=== PATIENT | female | born 1965 | race Caucasian/White ===

== ENCOUNTER 2017-02-05 17:00 | Inpatient (IN) | payer BC ==
[~2017-02-05] VITALS: Ht 182.9 cm; Wt 134.3 kg
--- NOTE | ~2017-02-05 | HP ---
PATIENT'S NAME: MARIN EVANS [facility] AGE: 51 Y [address] ROOM: [place] [address] LOCATION: [facility] ADMIT DATE: 02/15/2017 History & Physical DISCHARGE DATE: FAMILY PHYSICIAN: Maira Downing ATTENDING PHYSICIAN: JHONY ZAMUDIO DATE OF SERVICE: CHIEF COMPLAINT: Pain, right knee. HISTORY OF PRESENT ILLNESS: The patient is a 51-year-old female, who was admitted to the care of Dr. Jhony Zamudio, orthopedic surgeon, today with a diagnosis of end-stage DJD, right knee. The patient, when I see her, has undergone a successful uncomplicated right total knee arthroplasty, and I have been asked to follow her daily for medical illnesses and pain management. When I see her, she is resting quietly. Does not complain of headache, chest pain, nausea, or vomiting. Says her pain control is adequate. CURRENT MEDICATIONS: 1. Tylenol over the counter. 2. Claritin-D. ALLERGIES TO MEDICATION: No known drug allergies. SOCIAL HISTORY: Does not smoke. FAMILY HISTORY: Negative for problems with bleeding disorder or general anesthesia. IMMUNIZATION STATUS: Unknown. PREVIOUS OPERATIONS: See nurse's notes. REVIEW OF SYSTEMS: HEENT: No recent change in vision, sore throat, or earache. ENDOCRINE: She is not diabetic. There is no thyroid disease. LUNGS: No history of asthma. HEART: No history of hypertension, previous AL. GI: No recent nausea, vomiting, diarrhea, or melena. [facility] AGE: 51 Y [address] ROOM: [place] [address] LOCATION: [facility] ADMIT DATE: 02/15/2017 History & Physical DISCHARGE DATE: FAMILY PHYSICIAN: Maira Downing ATTENDING PHYSICIAN: JHONY ZAMUDIO : No dysuria or frequency. EXTREMITIES: End-stage DJD, right hip. NEUROLOGIC: No history of seizure or stroke. SKIN: No recent rashes. MENTAL STATUS: No recent depression or anxiety. PHYSICAL EXAMINATION: GENERAL: A pleasant dark-haired female, who appears at her stated age. VITAL SIGNS: Noted. HEENT: Benign. NECK: Unremarkable. LUNGS: Clear. HEART: No murmur. ABDOMEN: Benign. BREASTS: Not done. PELVIC AND RECTAL: Not done. EXTREMITIES: Show dressing of right knee. Pulses full throughout. NEUROLOGIC: Grossly intact without lateralizing signs. ASSESSMENT: 1. End-stage degenerative joint disease, right knee. 2. Status post right total knee arthroplasty. 3. Allergic rhinitis. PLAN: Follow daily. MD RITESH CROWELL/ander /[id number] D: 755 T: HISTORY & PHYSICAL
--- NOTE | ~2017-02-05 | OR ---
[facility] 51 Y [address] ROOM: [place] [address] LOCATION: [facility] ADMIT DATE: 02/15/2017 OR/Procedure Report DISCHARGE DATE: FAMILY PHYSICIAN: Maira Downing ATTENDING PHYSICIAN: JHONY ZAMUDIO SURGEON: Jhony Zamudio MD LINESPERSON: Addi Bae CST/DAVIN and Kenney Wild. DATE OF PROCEDURE: 02/15/2017 PRE-OP DIAGNOSIS: Degenerative joint disease right knee. POST-OP DIAGNOSIS: Degenerative joint disease right knee. OPERATION: Right total knee arthroplasty with computer navigation. ANESTHESIA: Spinal anesthesia plus adductor canal block plus periarticular local anesthesia (ropivacaine with epinephrine and Toradol). ESTIMATED BLOOD LOSS: DRAIN: None. SPECIMEN: None. COMPLICATIONS: None. IMPLANT SYSTEM: Reno triathlon. Size 5 posterior stabilized femoral component Size 4 [place] modular tibial tray 13 mm posterior stabilized size 4 x 3 tibial polyethylene insert 32 mm Oval X3 patella component. INDICATIONS FOR SURGERY: Marin Evans is a 51-year-old female who presents with advanced right knee degenerative joint disease and associated severely compromised activities of daily living. The patient has decided to proceed with knee replacement after having been thoroughly counseled regarding the associated risks, benefits, and limitations. We have specifically reviewed the risks and implications of infection, deep venous thrombosis, pulmonary embolism, mortality, neurovascular complications, blood transfusion (and associated potential for disease transmission or transfusion reaction), stiffness, instability, mechanical deterioration of the components (due to wear and or loosening), and the potential need for revision. We have also emphasized the importance of active involvement and compliance with post- PAT[facility]GE[facility] 51 Y [address] ROOM: [place] [address] LOCATION: [facility] ADMIT DATE: 02/15/2017 OR/Procedure Report DISCHARGE DATE: FAMILY PHYSICIAN: Maira Downing ATTENDING PHYSICIAN: JHONY ZAMUDIO operative physical therapy as a means of optimizing range of motion and functional recovery. Informed consent has been granted. DESCRIPTION OF PROCEDURE: The patient was positioned supine after administration of anesthesia and prophylactic antibiotics. A well-padded pneumatic tourniquet was placed around the right proximal thigh, and the right lower extremity was prepped and draped with vigilant sterile technique. The patient's name as well as the intended operative side and procedure were confirmed with a verbal time-out involving myself, the circulating nurse, the scrub nurse, and the anesthesiologist. Examination under anesthesia demonstrated no active skin lesions or masses. There was effusion. There was no erythema. There is abnormal warmth. Range of motion under anesthesia was from extension to 130 degrees of flexion. There was no ligamentous insufficiency. The right lower extremity was elevated and exsanguinated with an Esmarch wrap, and the pneumatic tourniquet was inflated to 300mmHg. The knee was approached through a longitudinal midline incision. A medial parapatellar arthrotomy was performed and the patella was everted. Examination of the joint space demonstrated a large amount of benign-appearing translucent synovial fluid. There was generalized moderate non proliferative synovitis. The cruciate ligaments were intact, but the anterior cruciate ligament was attenuated. There was a small osteophyte at the intercondylar notch. There were no loose bodies. The posterior cruciate ligament was intact. There was full-thickness loss of articular cartilage involving 80% of the medial facet of the patella, 80% of the medial femoral trochlea, and approximately 90% of the medial femoral condyle. In addition, there was full-thickness loss of articular cartilage involving the anteromedial 40% of the medial tibial plateau and a 5 x 10 mm region at the central aspect of the lateral femoral condyle where there was a full-thickness delaminating flap of articular cartilage. There was also a 5 x 10 mm region of full-thickness articular cartilage loss at the lateral margin of lateral facet of the patella. There were small osteophytes at the medial, lateral, and inferior margins of the patella as well as at the medial and lateral margins of femoral trochlea. There was a large osteophyte at the medial femoral condyle. There was a moderate-sized osteophyte at the medial tibial plateau and a small osteophyte at the lateral femoral condyle. The lateral meniscus was intact. There was mild inner perimeter tearing at the medial meniscus. Remnants of the menisci and cruciate ligaments were excised. The Zilift navigation femoral tracker was pinned in place at the distal aspect of the femoral trochlea. Absence of motion between the femur and the tracking device was confirmed manually and visually. Femoral osseous landmarks were PATIENT'S NAME: MARIN EVANS [facility] AGE: 51 Y [address] ROOM: [id number] [place], [place] [address] LOCATION: [facility] ADMIT DATE: 02/15/2017 OR/Procedure Report DISCHARGE DATE: FAMILY PHYSICIAN: Maira Downing ATTENDING PHYSICIAN: JHONY ZAMUDIO in order to calibrate the computer navigation system. Landmarks included the center of rotation of the ipsilateral hip, the center-point of the distal femur, the femoral AP axis, 57 points on the medial femoral condyle articular surface, and 57 points on the lateral femoral condyle articular surface. The iZotope computer navigation system was subsequently utilized to position the distal femoral resection block such that the distal femoral resection was performed perfectly perpendicular to the femoral mechanical axis. The distal femoral resection was performed with a [employer] oscillating saw. The iZotope computer navigation tibial tracker was pinned in place at the anterior aspect of the tibial plateau. Absence of motion between the tibia and the tracking device was confirmed manually and visually. Tibial osseous landmarks were obtained in order to calibrate the computer navigation system. Landmarks included the center-point of the tibial plateau, the AP tibial axis, 57 points on the medial tibial plateau articular surface, 57 points on the lateral tibial plateau articular surface, the medial malleolus, and the lateral malleolus. The iZotope computer navigation system was subsequently utilized to position the proximal tibial resection block such that the proximal tibial resection was performed perfectly perpendicular to the tibial mechanical axis. The proximal tibial resection was performed with a [employer] oscillating saw. Perpendicularity of the tibial resection with respect to the tibial shaft axis was reconfirmed by inserting a spacer-block attached to an extramedullary guide paulina. External rotation of the anterior and posterior femoral resections was set parallel to the epicondylar axis and carefully adjusted in order to create a rectangular flexion gap. The box resection was performed with a reciprocating saw. Anterior and posterior chamfer resections were performed with the oscillating saw. Posterior condyle osteophytes were excised with an osteotome. All other osteophytes were excised with a rongeur. Resection of all remnants of the menisci was reconfirmed. Flexion and extension gaps were confirmed to be symmetric and well balanced with a spacer-block technique. The patella resection was performed with an oscillating saw such that the composite thickness of the reconstructed patella was equivalent to the thickness of the [place] patella. Patella tracking was optimal and there was no need for lateral retinacular release. All trial components were removed and all prepared osseous surfaces were thoroughly irrigated with pulsatile saline lavage and dried prior to cementing all three components in a single stage using [place] Simplex cement containing pre-mixed tobramycin. All extruded excess cement was removed. The entire joint space was thoroughly inspected and thoroughly irrigated with bacteriostatic pulsatile saline lavage to assure that there was no residual debris of any PATIENT'S NAME: MARIN EVANS [facility] AGE: 51 Y [address] ROOM: [address] [address] LOCATION: [facility] ADMIT DATE: 02/15/2017 OR/Procedure Report DISCHARGE DATE: FAMILY PHYSICIAN: Maira Downing ATTENDING PHYSICIAN: JHONY ZAMUDIO. Final range of motion was from full extension (with no passive hyperextension) degrees of extension to 130 degrees of flexion. Patella tracking was reconfirmed to be optimal. There was excellent anteroposterior stability at 90 degrees of flexion. There was less than 1 mm of medial lift-off to valgus stress in full extension. There was less than 1 mm of lateral lift-off to varus stress in full extension. The arthrotomy was closed with multiple simple and daazid-en-kxjbs interrupted #1 Vicryl. Subcutaneous tissues were thoroughly re-irrigated with bacteriostatic pulsatile saline lavage. Subcutaneous tissues were re- approximated with simple buried interrupted #0 Vicryl sutures. The skin was closed with simple buried interrupted 2-0 Vicryl sutures followed by surgical charito. The dressing consisted of Xeroform gauze, 4x4 gauze, ABD pads and two 6-inch Jordan Wraps. There were no intra-operative complications. MD TATIANA TREVIZO/ander /[id number] d: 02/15/17 1902 t: 02/27/17 1004, OPERATIVE SUMMARY
--- NOTE | ~2017-02-05 | DS ---
PATIENT'S NAME: MARIN EVANS [facility] AGE: 51 Y [address] ROOM: [address] [address] LOCATION: [facility] ADMIT DATE: 02/15/2017 Discharge Summary DISCHARGE DATE: 02/17/2017 FAMILY PHYSICIAN: Maira Downing ATTENDING PHYSICIAN: Jhony Zamudio PRIMARY DIAGNOSIS: Degenerative joint disease of the right knee. SECONDARY DIAGNOSIS: Obesity, BMI of 41. PROCEDURE PERFORMED: Right total knee arthroplasty with computer navigation. HISTORY: The patient is a 51-year-old female, who presents with advanced right knee degenerative joint disease and associated severely compromised activities of daily living. The patient has decided to proceed with total knee arthroplasty after having been thoroughly counseled regarding the risks, benefits, limitations, and alternatives. Please refer to the outpatient clinic notes and admission history and physical for this patient. HOSPITAL COURSE: The patient underwent a right total knee arthroplasty on 02/15/2017 without complications. Spinal anesthesia plus adductor canal block plus periarticular local anesthesia was utilized. The patient received 24 hours of perioperative prophylactic antibiotics and remained hemodynamically stable, neurovascularly intact throughout the entire hospital course. The postoperative prophylactic deep venous thrombosis prophylaxis consisted of Xarelto 10 mg, early mobilization and pneumatic compression devices. Daily physical therapy for gait training, transfer training range of motion and quadriceps isometric exercises were received. The patient progressed well in physical therapy. On the date of discharge, 02/17/2017, the incision at the knee was healing well and showed no signs of infection. DISPOSITION: Home. DISCHARGE ACTIVITY: The patient is to bear weight as tolerated with range of motion and quadriceps isometric exercises as instructed. The operative extremity is to be elevated at least 90% of the day. There is to be sterile 4x4 gauze dressings to the incision daily. Dr. Zamudio is to be notified immediately if there is any increased pain, fevers, chills erythema or drainage. DISCHARGE MEDICATIONS: Include, 1. Xarelto 10 mg, take 1 tablet p.o. daily for DVT prevention. 2. Valium 5 mg, take 1/2 tablet to 1 tablet every 6 hours as needed for muscle spasms. 3. Dilaudid 2 mg, take 1 to 2 tablets every 4 hours as needed for pain. PATIENT'S NAME: MARIN EVANS [facility] AGE: 51 Y [address] ROOM: [address] [address] LOCATION: [facility] ADMIT DATE: 02/15/2017 Discharge Summary DISCHARGE DATE: 02/17/2017 FAMILY PHYSICIAN: Maira Downing ATTENDING PHYSICIAN: Jhony Zamudio 4. Celebrex 200 mg, take 1 tablet p.o. daily x7 days. FOLLOWUP: Followup date is Wednesday, February 22, 2017, for her initial postoperative evaluation and x-rays at that time. MANSI FISHER FOR JHONY ZAMUDIO MD TLB/modl /[id number] d: 02/24/17 0346 t: 03/09/17 0715, DISCHARGE SUMMARY
[~2017-02-05 17:00] MED LIST: ADVIL200 MG PO; CLARITIN10 MG PO; COLACE100 MG PO; DILAUDID 2MG(HYD2 MG PO; HYDRODIURIL12.5 MG PO; MIRALAX17 GM PO; NEURONTIN300 MG PO; TYLOPHEN500 MG PO; VALIUM5 MG PO; XARELTO10 MG PO
[2017-02-15] MEDS ORDERED: CLARITIN D 24HR1 TAB PO (05:57)
--- NOTE | 2017-02-15 15:32 | NUR ---
1520 Introduced self and CM role to patient. Patient identified that she lives at home alone, but her plan is to stay with a friend upon discharge until her charito are taken out. She did not have any questions or concerns about discharge. Stated she has all the necessary DME. Plan to discharge on 02/17. Will continue to follow and assist as needed. Wrote TINO Temi's name on marker board and told her to contact us if any concerns arise. CM [employer] TH.
--- NOTE | 2017-02-15 16:45 | NUR ---
patient ambulated to bathroom with one assist and walker. up to recliner. returned to bed. dilauid po x 3 last time at 1600, dilaudid 0.2 mg iv at 1255, toradol at 1258, valium at 1258. csm adequate. doppled pulse to right foot. foot warm. vss. routine post op vitals. tavia hose/foot pumps in place.
--- NOTE | 2017-02-16 03:09 | NUR ---
Shift Summary: Patient can ambulate with standby assist and walker. Good pain control with one Diladid at a time and valium. Tolerating regular diet well. Voiding without difficulty.
[2017-02-16 10:38] LABS: BASOPHIL % 0.3 %; EOSINOPHIL # 0.1 K/uL (0.0-0.5); EOSINOPHIL % 0.8 %; HEMATOCRIT 38.3 % (33.0-46.0); HEMOGLOBIN 12.6 g/dL (10.0-15.0); IMMATURE GRANULOCYTE % 0.1 %; LYMPHOCYTE # 1.5 K/uL (0.8-4.0); LYMPHOCYTE % 16.6 %; MCH 29.2 pg (27.0-34.0); MCHC 32.9 gm/dL (32.0-36.5); MCV 88.9 fl (83.0-98.0); MONOCYTE # 0.8 K/uL (0.0-1.0); MONOCYTE % 8.5 %; MPV 9.9 fl (9.4-12.4); NEUTROPHIL # (ANC) 6.6 K/uL (1.8-7.8); NEUTROPHIL % 73.7 %; NRBC % 0 /100WBC (0-0.00); PLATELET COUNT 213 K/uL (150-450); RBC 4.31 M/uL (3.50-5.50); RDW-CV 13.2 % (11.9-14.6)
[2017-02-16 11:02] LABS: ALBUMIN 3.3 gm/dL (3.5-5.0); ANION GAP 11.7 (10.0-19.0); CALCIUM 8.4 mg/dL (8.5-10.5); POTASSIUM 3.7 mMol/L (3.7-5.1); TOTAL BILIRUBIN 0.4 mg/dL (0.0-1.5); TOTAL PROTEIN 6.5 g/dL (6.0-8.4)
--- NOTE | 2017-02-16 14:17 | NUR ---
Significant Event: Fell in the shower this morning with OT. Patient B/P was 70's/30's. Gave bolus 1 liter of NS then running at 75ml/hr. AOx3. VSS. CSM WNL. Up with 1 assist with walker. No problems voiding. Hold ROM in R)knee. Dilaudid PO given for pain. Dressing C/D/I. Plans on going home tomorrow. Follow up:
--- NOTE | 2017-02-16 18:30 | NUR ---
Significant Event: Patient did not fall in bathroom. Patient had an episode of syncope while sitting on shower chair and bumped head on side of shower wall. Patient had no injuries. Follow up:
--- NOTE | 2017-02-17 03:37 | NUR ---
Significant Event: Dressing is clean, dry and intact. CSM WNL. Standby assist. Voids without difficulty. Gave prune juice and walked in the halls. Possible dismissal. Joseaudid at 0051. Follow up:
[2017-02-17] MEDS ORDERED: NORVASC5 MG PO (10:05)
[2017-02-17] MEDS ORDERED: COLACE100 MG PO (10:11)
[2017-02-17] MEDS ORDERED: NEURONTIN300 MG PO (10:12)
[2017-02-17] MEDS ORDERED: MIRALAX17 GM PO (10:14)
[2017-02-17] MEDS ORDERED: XARELTO10 MG PO (10:14)
[2017-02-17] MEDS ORDERED: VALIUM5 MG PO (10:17)
[2017-02-17] MEDS ORDERED: DILAUDID 2MG(HYD2 MG PO (10:18)
[2017-02-17] MEDS ORDERED: CELEBREX200 MG PO (10:19)
--- NOTE | 2017-02-17 14:10 | NUR ---
D: Patient dismissed to friends home for futher care. Taking analgesic prn for pain with relief. Ambulates with walker and standby assist. Gait steady. RT knee incision approximated with charito. Patient voices understanding of dismissal instructions given by Araceli Sanchez RN. Dismissed with dismissal instructions, RX and belonging.
== END 2017-02-17 14:13 | disposition disaster alternative care site (69) | DRG 470 ==
LOC: G3N 02-15 05:11
PROVIDERS: ADMIT Orthopaedic Surgery
PROC: 0SRC0J9 Replacement of Right Knee Joint with Synthetic Substitute, Cemented, Open Approach (ICD-10-PCS; principal; 2017-02-15)
DX: M17.11 Unilateral primary osteoarthritis, right knee (principal); Z68.41 Body mass index [BMI] 40.0-44.9, adult; J30.9 Allergic rhinitis, unspecified
CPT/HCPCS: C1713; C1776; J0690; J1100; J1170; J1885; J2001; J2795; J7030; J7120